=== PATIENT | female | born 1945 | race Caucasian/White ===

== ENCOUNTER 2017-02-04 09:30 | Day surgery (SDC) | payer MEDICARE, OTHER ==
[~2017-02-04] VITALS: Ht 162.6 cm; Wt 88.0 kg
[~2017-02-04 09:30] MED LIST: AMLO5TAB2 PO; ASPI-973 PO; ATRV10T PO; CALC-243 PO; HYDR12.5 PO; LABE300T PO; LEVO100T6 PO; LORA10CA PO; LOSA100T29 PO; MULT-1018 PO; PROB500T8 PO; SCOP1PAT TD; Sodium Chloride LOK Flush 10 mL Syringe IV PRN; fentaNYL-PF 50 mCg/mL 2 mL Inj IVPUSH PRN
[2017-02-04 09:55] VITALS: BP 143/72; PULSE 68; RESP 14; O2SAT 96
[2017-02-04] MEDS ORDERED: LABE300T PO (10:02)
[2017-02-04] MEDS: 0.9% Sodium Chloride 1,000 ML IV SCH ×2 (10:50→11:04)
[2017-02-04 11:19] VITALS: BP 108/66; PULSE 66; RESP 12; O2SAT 98
[2017-02-04 11:27] VITALS: BP 114/69; PULSE 69; RESP 12; O2SAT 96
[2017-02-04 11:36] VITALS: BP 106/66; PULSE 75; RESP 14; O2SAT 95
--- NOTE | 2017-02-04 12:33 | ENDO ---
[address] [address] ENDOSCOPY PROCEDURE PATIENT: NAHUM NUNEZ : 1945 MR#: [id number] ADMIT: 02/04/2017 JOB ID: [id number] DATE OF SERVICE: 02/04/2017 PROCEDURE: Colonoscopy. PREOPERATIVE DIAGNOSIS(ES): Colorectal cancer screening. POSTOPERATIVE DIAGNOSIS(ES): Moderate sigmoid diverticulosis. ANESTHESIA: Fentanyl and versed were used. DESCRIPTION OF PROCEDURE: After risks and benefits were explained to the patient, informed consent was obtained. After anesthesia administered, colonoscope was inserted from the rectum to the cecum and the mucosa carefully examined. Prep of the patient was excellent. After procedure was done, the scope was withdrawn and procedure terminated. FINDINGS: Upon inspection of the anus, no masses, hemorrhoids, ulcers, or fissures were seen throughout the entire examination. There was moderate sigmoid diverticulosis. There were no polyps or masses that were seen. Retroflexion was normal. IMPRESSIONS: Moderate sigmoid diverticulosis. RECOMMENDATIONS: High-fiber diet. Repeat colonoscopy in 10 years for colorectal cancer screening.
== END 2017-02-04 23:59 | disposition home or self-care (01) ==
LOC: END 09:30
PROVIDERS: ATTEND Internal Medicine Gastroenterology
DX: Z12.11 Encounter for screening for malignant neoplasm of colon (principal); K57.30 Diverticulosis of large intestine without perforation or abscess without bleeding; E11.65 Type 2 diabetes mellitus with hyperglycemia; E03.9 Hypothyroidism, unspecified; I10 Essential (primary) hypertension; E66.9 Obesity, unspecified
CPT/HCPCS: G0121; G0500; J2250; J3010; J7030